=== PATIENT | female | born 1935 | race Caucasian/White ===

== ENCOUNTER 2017-05-29 08:30 | Outpatient (RCR) | payer OTHER | END 2017-06-20 | disposition home or self-care (01) | LOC: PTY 08:30 | DX: M25.512 Pain in left shoulder (principal) ==

== ENCOUNTER 2017-06-22 08:50 | Outpatient (RCR) | payer OTHER | END 2017-07-20 | disposition home or self-care (01) | LOC: PTY 08:50 | DX: M25.512 Pain in left shoulder (principal) ==

== ENCOUNTER 2017-07-03 09:49 | Outpatient (RCR) | payer OTHER | END 2017-07-20 | disposition home or self-care (01) | LOC: PTY 09:49 | DX: M25.562 Pain in left knee (principal); M25.561 Pain in right knee; M25.512 Pain in left shoulder; M85.80 Other specified disorders of bone density and structure, unspecified site ==

== ENCOUNTER 2017-08-14 09:00 | Outpatient (RCR) | payer OTHER | END 2017-08-20 | disposition home or self-care (01) | LOC: PTY 09:00 | DX: M25.562 Pain in left knee (principal); M25.561 Pain in right knee; M25.512 Pain in left shoulder ==

== ENCOUNTER 2017-08-21 09:26 | Outpatient (RCR) | payer OTHER | END 2017-09-19 | disposition home or self-care (01) | LOC: PTY 09:26 | DX: M25.562 Pain in left knee (principal); M25.561 Pain in right knee ==

== ENCOUNTER 2017-12-25 09:40 | Outpatient (RCR) | payer OTHER | END 2018-01-20 | disposition home or self-care (01) | LOC: PTY 09:40 | DX: M19.011 Primary osteoarthritis, right shoulder (principal); M25.512 Pain in left shoulder; M85.80 Other specified disorders of bone density and structure, unspecified site ==

== ENCOUNTER 2018-01-22 09:30 | Outpatient (RCR) | payer OTHER | END 2018-02-19 | disposition home or self-care (01) | LOC: PTY 09:30 | DX: M19.019 Primary osteoarthritis, unspecified shoulder (principal); M85.80 Other specified disorders of bone density and structure, unspecified site; M19.90 Unspecified osteoarthritis, unspecified site ==